=== PATIENT | male | born 1985 | race African-American/Black ===

== ENCOUNTER 2018-10-17 14:56 | Inpatient (IN) | payer OTHER ==
[2018-10-17 17:34] VITALS: BMI 23.9
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
[2018-10-17] MEDS ORDERED: MENTHOL/PHENOL 1 EACH UD MM PRN (19:49)
[2018-10-17] MEDS ORDERED: MAGNESIUM CITRATE 300 ML BOTTLE PO PRN (19:49)
[2018-10-17] MEDS ORDERED: guaiFENesin/D-METHORPHAN HB 10 ML UNIT-DOSE CUPS PO PRN (19:49)
[2018-10-17] MEDS ORDERED: P-EPHED 60MG/TRIPROLIDI 2.5MG TABLET PO PRN (19:49)
[2018-10-17] MEDS ORDERED: MAGNESIUM HYDROX 2400MG/30ML ORAL SUSPENSION 30 ML CUP PO PRN (19:49)
[2018-10-17] MEDS ORDERED: ACETAMINOPHEN 325 MG TABLET (FP) PO PRN (19:49)
[2018-10-17] MEDS ORDERED: MAG HYDROX/AL HYDROX/SIMETH 30 ML UNIT-DOSE CUP PO PRN (19:49)
[2018-10-17] MEDS ORDERED: LOPERAMIDE HCL 2 MG CAPSULE PO PRN (19:49)
[2018-10-17] MEDS ORDERED: ALBUTEROL SO4 0.083% IH SOL 2.5 MG/3 ML VIAL.NEB. NEB PRN (20:05)
[2018-10-17] MEDS ORDERED: ALBUTEROL SO4 8 GM HFA INHALER IH PRN (20:06)
[2018-10-17] MEDS ORDERED: MELATONIN 5 MG TABLETS PO PRN (22:00)
[2018-10-18] MEDS: THIAMINE HCL 100 MG TABLET (FP) PO SCH ×2 (02:51→21:36)
[2018-10-18] MEDS: PRENATAL VITAMINS W/ FOLIC ACID TABLET (FP) PO SCH (10:27)
[2018-10-18] MEDS: DASATINIB 100 MG PO SCH (10:38)
[2018-10-18 12:40] LABS: HEMATOCRIT 40.3 % (35.4-49); HEMOGLOBIN 13.5 GM/dL (11.7-16.9); MCH 30.9 pg (25.7-33.7); MCHC 33.6 g/dl (32.0-35.9); MEAN CELL VOLUME 92.1 fl (80-96); MEAN PLT VOLUME 7.7 fl (7.5-11.1); PLATELET COUNT 255 K/MM3 (134-434); RBC 4.37 M/mm3 (4.00-5.60); RDW 15.7 % (11.9-15.9); WHITE BLOOD COUNT 10.7 K/mm3 (4.0-10.0)
[2018-10-18 12:48] LABS: ALBUMIN 3.6 g/dl (3.4-5.0); ANION GAP 5 MMOL/L (8-16); BILIRUBIN,TOTAL 0.4 mg/dL (0.2-1); BLOOD UREA NITROGEN 14 mg/dL (7-18); CALCIUM 8.7 mg/dL (8.5-10.1); CHLORIDE 106 mmol/L (98-107); CO2 29 mmol/L (21-32); CREATININE 1.3 mg/dL (0.55-1.3); GLUCOSE,RANDOM 109 mg/dL (74-106); POTASSIUM 3.6 mmol/L (3.5-5.1); SGOT/AST 16 U/L (15-37); SODIUM 140 mmol/L (136-145); TOT PROT 6.4 g/dl (6.4-8.2)
[2018-10-18 12:49] LABS: ALK PHOS 43 U/L (45-117); SGPT/ALT 16 U/L (13-61)
--- NOTE | 2018-10-18 15:09 | PN ---
[facility] Progress Note Note: Vital Signs Temperature 98.6 F 10/18/18 06:52 Pulse Rate 52 L 10/18/18 06:52 Respiratory Rate 18 10/18/18 06:52 Blood Pressure 125/71 10/18/18 06:52 O2 Sat by Pulse Oximetry (%) Patient was evaluated for nutritional consult today, rnp rec: Ensure 120 ML PO BID. Ordered updated as per rnp recommendations. Continue to monitor.
[2018-10-19] MEDS: DASATINIB 100 MG PO SCH (10:14)
[2018-10-19] MEDS: PRENATAL VITAMINS W/ FOLIC ACID TABLET (FP) PO SCH (10:14)
[2018-10-19] MEDS ORDERED: COLLOIDAL OATMEAL 1 BAR EACH TP PRN (12:32)
[2018-10-19] MEDS ORDERED: DOCUSATE SODIUM 100 MG CAPSULE (FP) PO ONE (12:38)
--- NOTE | 2018-10-19 13:02 | PN ---
[facility] Progress Note Note: PT REPORTS C/O RECTAL BLEEDING ON BOWEL MOVEMENT X 2 DAYS AND STATES HE HAS A HX OF HEMORRHOIDS. REPORTS HE HAD COLONOSCOPY 2 YEARS AGO WITH POLYPECTOMY. PT REPORTS WAS RELEASED FROM [facility] 3 DAYS AGO AND ADMITTED TO REHAB ON 10/17/18. REPORTS HARD STOOL. DENIES NAUSEA OR VOMITING. APPEARS WELL NOURISHED. ALERT O X 3. Vital Signs 10/19/18 07:14 Temperature 97.6 F Pulse Rate 57 L Respiratory 18 Rate Blood Pressure 126/69 Laboratory Tests 10/18/18 10/18/18 10/18/18 10:20 10:20 10:20 WBC 10.7 H RBC 4.37 Hgb 13.5 Hct 40.3 MCV 92.1 MCH 30.9 MCHC 33.6 RDW 15.7 Plt Count 255 MPV 7.7 Sodium 140 Potassium 3.6 Chloride 106 Carbon Dioxide 29 Anion Gap 5 L BUN 14 Creatinine 1.3 Creat Clearance w eGFR > 60 Random Glucose 109 H Calcium 8.7 Total Bilirubin 0.4 AST 16 ALT 16 Alkaline Phosphatase 43 L Total Protein 6.4 Albumin 3.6 RPR Titer Nonreactive LABS WNL HX HEMMORHOIDS S/P COLONOSCOPY S/P POLYPECTOMY CONSTIPATION PLAN:INCREASE PO FLUIDS COLACE 100 MG PO TID PT INSTRUCTED TO MONITOR BM/BLEEDING AND REPORT TO STAFF RE-EVALUATE AND F/U AT [facility] IF NECESSARY. PT DECLINED HEMMORHOIDAL CREAM
[2018-10-19] MEDS: DOCUSATE SODIUM 100 MG CAPSULE (FP) PO SCH ×2 (14:33→21:36)
[2018-10-19] MEDS: THIAMINE HCL 100 MG TABLET (FP) PO SCH (21:36)
[2018-10-20] MEDS: DOCUSATE SODIUM 100 MG CAPSULE (FP) PO SCH ×3 (06:32→22:15)
[2018-10-20] MEDS: PRENATAL VITAMINS W/ FOLIC ACID TABLET (FP) PO SCH (10:21)
[2018-10-20] MEDS: DASATINIB 100 MG PO SCH (10:22)
--- NOTE | 2018-10-20 10:52 | PN ---
S Progress Note Note: PT C/O FACIAL BUMPS ON BEARDED AREAS AND WOULD LIKE A REMEDY. REPORTS HE USES A "CREAM LIKE NOXEMA". ALERT O X 3. Vital Signs 10/20/18 10/20/18 03:30 06:55 Temperature 97.8 F Pulse Rate 64 Respiratory 18 18 Rate Blood Pressure 117/59 L Laboratory Tests 10/18/18 10/18/18 10/18/18 10:20 10:20 10:20 WBC 10.7 H RBC 4.37 Hgb 13.5 Hct 40.3 MCV 92.1 MCH 30.9 MCHC 33.6 RDW 15.7 Plt Count 255 MPV 7.7 Sodium 140 Potassium 3.6 Chloride 106 Carbon Dioxide 29 Anion Gap 5 L BUN 14 Creatinine 1.3 Creat Clearance w eGFR > 60 Random Glucose 109 H Calcium 8.7 Total Bilirubin 0.4 AST 16 ALT 16 Alkaline Phosphatase 43 L Total Protein 6.4 Albumin 3.6 RPR Titer Nonreactive EXAM: SMALL RED ACNEIC BUMPS ON BEARDED AREAS/NECK. NO PUS NOTED. A;ACNE RAZOR BUMPS PLAN:BENZOYL PEROXIDE GEL 5% DIRECTED.
[2018-10-20] MEDS: BENZOYL PEROXIDE 5% 60 GM GEL..GRAM. TP SCH (11:27)
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
[2018-10-20] MEDS: THIAMINE HCL 100 MG TABLET (FP) PO SCH (22:15)
[2018-10-21] MEDS: DOCUSATE SODIUM 100 MG CAPSULE (FP) PO SCH ×3 (07:39→21:33)
[2018-10-21] MEDS: PRENATAL VITAMINS W/ FOLIC ACID TABLET (FP) PO SCH (10:11)
[2018-10-21] MEDS: DASATINIB 100 MG PO SCH (10:15)
[2018-10-21] MEDS: BENZOYL PEROXIDE 5% 60 GM GEL..GRAM. TP SCH (10:16)
[2018-10-21] MEDS: THIAMINE HCL 100 MG TABLET (FP) PO SCH (21:33)
[2018-10-22] MEDS: DOCUSATE SODIUM 100 MG CAPSULE (FP) PO SCH ×3 (08:22→21:29)
[2018-10-22] MEDS: PRENATAL VITAMINS W/ FOLIC ACID TABLET (FP) PO SCH (10:02)
[2018-10-22] MEDS: BENZOYL PEROXIDE 5% 60 GM GEL..GRAM. TP SCH (10:02)
[2018-10-22] MEDS: DASATINIB 100 MG PO SCH (10:02)
[2018-10-22 13:22] LABS: URINE APPEARANCE CLEAR; URINE BILIRUBIN NEGATIVE (<2.0 mg/dL); URINE COLOR YELLOW; URINE GLUCOSE (UA) NEGATIVE (NEGATIVE); URINE KETONE NEGATIVE (NEGATIVE); URINE LEUK ESTERASE NEGATIVE (NEGATIVE); URINE NITRITE NEGATIVE (NEGATIVE); URINE PROTEIN NEGATIVE (NEGATIVE); URINE UROBILINOGEN NEGATIVE mg/dL (0.2-1.0)
[2018-10-22] MEDS ORDERED: ALBUTEROL SO4 0.5 % INH SOLN 2.5 MG/0.5 ML VIAL.NEB. NEB PRN (15:06)
[2018-10-22] MEDS: THIAMINE HCL 100 MG TABLET (FP) PO SCH (21:29)
[2018-10-23] MEDS: DOCUSATE SODIUM 100 MG CAPSULE (FP) PO SCH ×3 (07:41→21:34)
[2018-10-23] MEDS: PRENATAL VITAMINS W/ FOLIC ACID TABLET (FP) PO SCH (10:10)
[2018-10-23] MEDS: DASATINIB 100 MG PO SCH (10:12)
[2018-10-23] MEDS: BENZOYL PEROXIDE 5% 60 GM GEL..GRAM. TP SCH (10:14)
--- NOTE | 2018-10-23 15:52 | PN ---
[facility] Progress Note Note: PT IS REQUESTING ASSISTANCE TO CALL HIS PHARMACY FOR HIS MEDICATION -SPRYCEL REFILL. ATHLETIC EVENTS SCORER CALLED [facility]S [facility] IN [place] WHO EXPLAINED PT NEEDS TO CONTACT THE [facility] AT FOR THE REFILL AND POSSIBLE DELIVERY TO PATIENT AT [address] [place] [address]. PATIENT WAS ABLE TO SPEAK TO THE PHARMACISTELISA WHO INFORMED PATIENT AND ATHLETIC EVENTS SCORER PATIENT'S INSURANCE CARD NEED TO BE REACTIVATED WITH THEM AND TUESDAY MIGHT BE THE EARLIEST FOR DELIVERY. THIS MEDICATION IS UNAVAILABE INPATIENT. PT HAS 4 REFILLS LEFT ON HIS CURRENT BOTTLE. Vital Signs - 24 hr 10/23/18 10/23/18 10/23/18 00:30 03:30 07:13 Temperature 98.2 F Pulse Rate 71 Respiratory 18 18 18 Rate Blood Pressure 110/57 L Laboratory Tests 10/18/18 10/18/18 10/18/18 10:20 10:20 10:20 WBC 10.7 H RBC 4.37 Hgb 13.5 Hct 40.3 MCV 92.1 MCH 30.9 MCHC 33.6 RDW 15.7 Plt Count 255 MPV 7.7 Sodium 140 Potassium 3.6 Chloride 106 Carbon Dioxide 29 Anion Gap 5 L BUN 14 Creatinine 1.3 Creat Clearance w eGFR > 60 Random Glucose 109 H Calcium 8.7 Total Bilirubin 0.4 AST 16 ALT 16 Alkaline Phosphatase 43 L Total Protein 6.4 Albumin 3.6 Urine Color Urine Appearance Urine pH Ur Specific [place] Urine Protein Urine Glucose (UA) Urine Ketones Urine Blood Urine Nitrite Urine Bilirubin Urine Urobilinogen Ur Leukocyte Esterase RPR Titer Nonreactive 10/22/18 10:50 WBC RBC Hgb Hct MCV MCH MCHC RDW Plt Count MPV Sodium Potassium Chloride Carbon Dioxide Anion Gap BUN Creatinine Creat Clearance w eGFR Random Glucose Calcium Total Bilirubin AST ALT Alkaline Phosphatase Total Protein Albumin Urine Color Yellow Urine Appearance Clear Urine pH 6.0 Ur Specific [place] 1.028 Urine Protein Negative Urine Glucose (UA) Negative Urine Ketones Negative Urine Blood Negative Urine Nitrite Negative Urine Bilirubin Negative Urine Urobilinogen Negative Ur Leukocyte Esterase Negative RPR Titer AWAITS MEDICATION DELIVERY
[2018-10-23] MEDS: THIAMINE HCL 100 MG TABLET (FP) PO SCH (21:34)
[2018-10-24] MEDS: DOCUSATE SODIUM 100 MG CAPSULE (FP) PO SCH ×3 (07:11→21:57)
[2018-10-24] MEDS: DASATINIB 100 MG PO SCH (10:11)
[2018-10-24] MEDS: PRENATAL VITAMINS W/ FOLIC ACID TABLET (FP) PO SCH (10:11)
[2018-10-24] MEDS: BENZOYL PEROXIDE 5% 60 GM GEL..GRAM. TP SCH (10:12)
[2018-10-24] MEDS: THIAMINE HCL 100 MG TABLET (FP) PO SCH (21:57)
[2018-10-25] MEDS: DOCUSATE SODIUM 100 MG CAPSULE (FP) PO SCH ×3 (07:06→21:32)
--- NOTE | 2018-10-25 09:20 | PN ---
[facility] Progress Note Note: LATE ENTRY for 10/24/18:THIS IP LITIGATION ASSOCIATE CALLED [facility] FOR UPDATE ON DELIVERY OF THIS PT'S MEDICATION-SPRYCEL. SPOKE WITH [employer] WHO REQUESTED FOR PT'S CURRENT INSURANCE INFORMATION BECAUSE PREVIOUS INSURANCE WAS DEACTIVATED. PT LATER EXPLAINED THAT BECAUSE HE WAS IN [facility] THE PREVIOUS BENEFIT WAS DEACTIVATED. PT WILL FOLLOW UP WITH HIS [employer] CANAL SUPERINTENDENT AND DSS TO GET RECORDS RECTIFIED AND RE-INSTATED FOR PHARMACY TO PROCESS REFILLS. TODAY'S ENTRY: PT SPOKE WITH DSS STAFF IN THIS IP LITIGATION ASSOCIATE'S ROOM OFFICE TODAY AND WAS TOLD HIS MEDICAID WILL BE TURNED ON AND EXPECTED TO REFLECT OVERNIGHT. PT ALSO STATES HE WILL NEED TO CALL THE HMO [employer] FOR COORDINATION OF BOTH BENEFITS. SPECIALTY PHARMACY WILL BE CALLED TO INFORM OF THIS UPDATE FOR POSSIBLE DELIVERY DATE OF PATIENT'S MEDICATION.
[2018-10-25] MEDS: PRENATAL VITAMINS W/ FOLIC ACID TABLET (FP) PO SCH (10:45)
[2018-10-25] MEDS: BENZOYL PEROXIDE 5% 60 GM GEL..GRAM. TP SCH (10:45)
[2018-10-25] MEDS: DASATINIB 100 MG PO SCH (10:46)
[2018-10-25] MEDS: THIAMINE HCL 100 MG TABLET (FP) PO SCH (21:31)
[2018-10-26] MEDS: DOCUSATE SODIUM 100 MG CAPSULE (FP) PO SCH ×3 (06:57→21:42)
[2018-10-26] MEDS: DASATINIB 100 MG PO SCH (09:46)
[2018-10-26] MEDS: PRENATAL VITAMINS W/ FOLIC ACID TABLET (FP) PO SCH (09:46)
[2018-10-26] MEDS: BENZOYL PEROXIDE 5% 60 GM GEL..GRAM. TP SCH (09:46)
[2018-10-26] MEDS: THIAMINE HCL 100 MG TABLET (FP) PO SCH (21:42)
[2018-10-27] MEDS: DOCUSATE SODIUM 100 MG CAPSULE (FP) PO SCH ×3 (07:28→23:19)
[2018-10-27] MEDS: PRENATAL VITAMINS W/ FOLIC ACID TABLET (FP) PO SCH (10:39)
[2018-10-27] MEDS: DASATINIB 100 MG PO SCH (16:05)
[2018-10-27] MEDS: THIAMINE HCL 100 MG TABLET (FP) PO SCH (23:19)
[2018-10-28] MEDS: DOCUSATE SODIUM 100 MG CAPSULE (FP) PO SCH ×3 (06:40→22:06)
[2018-10-28] MEDS: PRENATAL VITAMINS W/ FOLIC ACID TABLET (FP) PO SCH (10:13)
[2018-10-28] MEDS: DASATINIB 100 MG PO SCH (15:04)
[2018-10-28] MEDS: THIAMINE HCL 100 MG TABLET (FP) PO SCH (22:06)
[2018-10-29] MEDS: DOCUSATE SODIUM 100 MG CAPSULE (FP) PO SCH ×3 (07:21→22:36)
[2018-10-29] MEDS: DASATINIB 100 MG PO SCH (10:25)
[2018-10-29] MEDS: PRENATAL VITAMINS W/ FOLIC ACID TABLET (FP) PO SCH (10:26)
[2018-10-29] MEDS: THIAMINE HCL 100 MG TABLET (FP) PO SCH (22:36)
[2018-10-30] MEDS: DOCUSATE SODIUM 100 MG CAPSULE (FP) PO SCH ×3 (07:06→21:28)
[2018-10-30] MEDS: PRENATAL VITAMINS W/ FOLIC ACID TABLET (FP) PO SCH (10:32)
[2018-10-30] MEDS: DASATINIB 100 MG PO SCH (10:33)
--- NOTE | 2018-10-30 10:57 | PN ---
S Progress Note Note: PT'S MEDICATION SPRYCEL DELIVERED ON 10/28/18 PER NURSE'S NOTE AND PT RESTARTED ON HIS MED. Vital Signs - 24 hr 10/30/18 10/30/18 10/30/18 00:30 03:30 06:51 Temperature 97.8 F Pulse Rate 74 Respiratory 18 18 18 Rate Blood Pressure 134/84
[2018-10-30] MEDS ORDERED: COLLOIDAL OATMEAL 1 BAR EACH TP PRN (14:07)
[2018-10-30] MEDS: HYDROCORTISONE 1% TOPICAL CREAM 30 GM TUBE TP SCH ×2 (14:44→21:29)
[2018-10-30] MEDS: THIAMINE HCL 100 MG TABLET (FP) PO SCH (21:28)
[2018-10-31] MEDS: DOCUSATE SODIUM 100 MG CAPSULE (FP) PO SCH ×3 (06:29→21:44)
[2018-10-31] MEDS: PRENATAL VITAMINS W/ FOLIC ACID TABLET (FP) PO SCH (10:06)
[2018-10-31] MEDS: DASATINIB 100 MG PO SCH (10:06)
[2018-10-31] MEDS: HYDROCORTISONE 1% TOPICAL CREAM 30 GM TUBE TP SCH ×2 (10:07→21:44)
[2018-10-31] MEDS: THIAMINE HCL 100 MG TABLET (FP) PO SCH (21:44)
[2018-11-01] MEDS: DOCUSATE SODIUM 100 MG CAPSULE (FP) PO SCH ×3 (06:44→21:34)
[2018-11-01] MEDS: PRENATAL VITAMINS W/ FOLIC ACID TABLET (FP) PO SCH (10:23)
[2018-11-01] MEDS: DASATINIB 100 MG PO SCH (10:23)
[2018-11-01] MEDS: HYDROCORTISONE 1% TOPICAL CREAM 30 GM TUBE TP SCH ×2 (10:24→21:35)
[2018-11-01] MEDS: THIAMINE HCL 100 MG TABLET (FP) PO SCH (21:34)
[2018-11-02] MEDS: DOCUSATE SODIUM 100 MG CAPSULE (FP) PO SCH ×3 (07:14→21:24)
[2018-11-02] MEDS: DASATINIB 100 MG PO SCH (10:07)
[2018-11-02] MEDS: PRENATAL VITAMINS W/ FOLIC ACID TABLET (FP) PO SCH (10:07)
[2018-11-02] MEDS: HYDROCORTISONE 1% TOPICAL CREAM 30 GM TUBE TP SCH ×2 (10:08→21:24)
[2018-11-02] MEDS: THIAMINE HCL 100 MG TABLET (FP) PO SCH (21:24)
[2018-11-03] MEDS: DOCUSATE SODIUM 100 MG CAPSULE (FP) PO SCH (06:43)
[2018-11-03 06:54] VITALS: BP 128/68; PULSE 72; TEMP 97.3
[2018-11-03] MEDS: DASATINIB 100 MG PO SCH (09:21)
[2018-11-03] MEDS: PRENATAL VITAMINS W/ FOLIC ACID TABLET (FP) PO SCH (09:21)
--- NOTE | 2018-11-03 09:48 | PN ---
[facility] Progress Note Note: PT COMPLETED REHAB AND DISCHARGED TODAY. PT HAS BEEN REFERRED TO [facility] ON [address], [place] FOR CD AFTERCARE. PT WILL FOLLOW UP WITH HIS MEDICAL CARE WITH [facility] WITH DR. LB FIELDS ON [address], [place], [place]. PH : [phone]. PT STSTE HE HAS AN APPOINTMENT SET UP FOR AFTER DISCHARGE FROM REHAB INDICATED BELOW. PT CURRENTLY HAS OWN MEDICATION-"SPRYCEL". ALERT O X 3. EARLIER COMPLAINTS APPEAR TO HAVE RESOLVED PT DENIES ANY DISCOMFORT. DENIES S/H/I. Vital Signs (72 hours) 11/01/18 11/01/18 11/01/18 00:30 03:30 06:46 Temperature 98.7 F Pulse Rate 75 Respiratory 18 18 17 Rate Blood Pressure 125/69 11/02/18 11/02/18 11/02/18 00:30 03:30 06:50 Temperature 98.1 F Pulse Rate 73 Respiratory 18 18 18 Rate Blood Pressure 123/71 11/03/18 11/03/18 11/03/18 00:30 03:30 06:53 Temperature 97.3 F L Pulse Rate 72 Respiratory 18 18 17 Rate Blood Pressure 128/68 Laboratory Tests 10/18/18 10/18/18 10/18/18 10:20 10:20 10:20 WBC 10.7 H RBC 4.37 Hgb 13.5 Hct 40.3 MCV 92.1 MCH 30.9 MCHC 33.6 RDW 15.7 Plt Count 255 MPV 7.7 Sodium 140 Potassium 3.6 Chloride 106 Carbon Dioxide 29 Anion Gap 5 L BUN 14 Creatinine 1.3 Creat Clearance w eGFR > 60 Random Glucose 109 H Calcium 8.7 Total Bilirubin 0.4 AST 16 ALT 16 Alkaline Phosphatase 43 L Total Protein 6.4 Albumin 3.6 Urine Color Urine Appearance Urine pH Ur Specific [place] Urine Protein Urine Glucose (UA) Urine Ketones Urine Blood Urine Nitrite Urine Bilirubin Urine Urobilinogen Ur Leukocyte Esterase RPR Titer Nonreactive 10/22/18 10:50 WBC RBC Hgb Hct MCV MCH MCHC RDW Plt Count MPV Sodium Potassium Chloride Carbon Dioxide Anion Gap BUN Creatinine Creat Clearance w eGFR Random Glucose Calcium Total Bilirubin AST ALT Alkaline Phosphatase Total Protein Albumin Urine Color Yellow Urine Appearance Clear Urine pH 6.0 Ur Specific [place] 1.028 Urine Protein Negative Urine Glucose (UA) Negative Urine Ketones Negative Urine Blood Negative Urine Nitrite Negative Urine Bilirubin Negative Urine Urobilinogen Negative Ur Leukocyte Esterase Negative RPR Titer NAD MEDICALLY STABLE PLAN:FOLLOW UP WITH AFTERCARE AT [facility] O 11/06/18 AT 1 :00 P.M. FOLLOW UP WITH MEDICAL MANAGEMENT WITH [facility] ON 11/14/18 AT 10 A.M.
== END 2018-11-03 09:25 | disposition home or self-care (01) | DRG 772 ==
LOC: YASAS 14:56 → Y3N 21:41 → UNDOADMIN 21:41 → Y5N 21:41
PROVIDERS: ADMIT Surgery; ATTEND Neuromusculoskeletal Medicine & OMM
PROC: HZ42ZZZ Group Counseling for Substance Abuse Treatment, Cognitive-Behavioral (ICD-10-PCS; principal; 2018-10-17)
DX: F13.20 Sedative, hypnotic or anxiolytic dependence, uncomplicated (principal); F12.20 Cannabis dependence, uncomplicated; F16.10 Hallucinogen abuse, uncomplicated; F17.210 Nicotine dependence, cigarettes, uncomplicated; C95.90 Leukemia, unspecified not having achieved remission; J45.20 Mild intermittent asthma, uncomplicated; L30.8 Other specified dermatitis; K59.00 Constipation, unspecified
CPT/HCPCS: 36415; 71046-TC-FY; 80053; 81003; 85027; 86593